=== PATIENT | male | born 1970 | race Caucasian/White ===

== ENCOUNTER 2017-07-27 22:24 | Emergency (ER) | payer SELFPAY ==
[~2017-07-27] VITALS: Ht 188 cm; Wt 87.0 kg
[2017-07-27 22:26] VITALS: Ht 188 cm; Wt 87.0 kg
--- NOTE | 2017-07-27 23:13 | ERD ---
ER Documentation Chief Complaint Chief Complaint chest pain x 2 days HPI Patient is a 47-year-old male who presents with gradual onset, constant, mild tickling sensation that he feels is inside the left side of his chest for the last 2 days. He states that it is in a focal area around his left nipple, but does not feel like it is on the skin or chest wall. He denies shortness of breath, denies chest pain, denies pleuritic pain. Reports that he has had a similar sensation over the last 2 years that typically lasts 5-10 minutes and occurs approximately 3 times per month. He previously has experienced this as a pressure, but states that for the last 2 days it is been a tickling sensation. He associates it with eating sweets. He denies nausea, diaphoresis , back pain, radiation of pain, lightheadedness. He last saw a doctor 2 years ago and states that he had a normal evaluation. ROS All systems reviewed and are negative except as per history of present illness. Medications Home Meds No Active Prescriptions or Reported Meds Allergies Allergies: Coded Allergies: No Known Allergy (Unverified , 07/27/17) PMhx/Soc Past medical history: None Past surgical history: None Social history: Denies tobacco, alcohol or illicit drugs Medical and Surgical Hx: pt denies Medical Hx, pt denies Surgical Hx Hx Alcohol Use: No Hx Substance Use: No Hx Tobacco Use: No Smoking Status: Never smoker FmHx Family History: No coronary disease, No diabetes Physical Exam Vitals Vital Signs Date Time Temp Pulse Resp B/P Pulse Ox O2 Delivery O2 Flow Rate FiO2 07/28/17 00:46 61 20 123/84 99 Room Air 07/27/17 22:26 98.0 71 20 139/66 98 Physical Exam Const: Alert, no acute distress Head: Atraumatic Eyes: Normal Conjunctiva, No pallor, no icterus ENT: Normal External Ears, Nose and Mouth. Mucous membranes moist Neck: Full range of motion. No JVD Resp: Clear to auscultation bilaterally, No wheezes, no rales Cardio: Regular rate and rhythm, no murmurs, No chest wall tenderness, no rash Abd: Soft, non tender, non distended. Skin: No petechiae or rashes Back: No midline or flank tenderness Ext: No cyanosis, or edema, 2+ radial pulses bilateral Neur: Awake and alert, Cranial nerves II through XII intact bilaterally, moves and feels 4 extremities appropriately. Psych: Normal Mood and Affect Result Diagram: 07/27/17231907/27/172319 Results 24 hrs Laboratory Tests Test 07/27/17 23:20 White Blood Count 7.110^3/ul Red Blood Count 4.9710^6/ul Hemoglobin 14.4g/dl Hematocrit 41.8% Mean Corpuscular Volume 84.1fl Mean Corpuscular Hemoglobin 29.0pg Mean Corpuscular Hemoglobin Concent 34.4g/dl Red Cell Distribution Width 13.2% Platelet Count 84939^3/UL Mean Platelet Volume 9.9fl Neutrophils % 53.9% Lymphocytes % 35.4% Monocytes % 6.8% Eosinophils % 2.8% Basophils % 0.8% Nucleated Red Blood Cells % 0.0/100WBC Neutrophils # 3.810^3/ul Lymphocytes # 2.510^3/ul Monocytes # 0.510^3/ul Eosinophils # 0.210^3/ul Basophils # 0.110^3/ul Nucleated Red Blood Cells # 0.010^3/ul Sodium Level 143mmol/L Potassium Level 3.7mmol/L Chloride Level 103mmol/L Carbon Dioxide Level 29mmol/L Anion Gap 15 Blood Urea Nitrogen 15mg/dl Creatinine 0.98mg/dl Glucose Level 77mg/dl Calcium Level 9.3mg/dl Troponin I < 0.012ng/ml Procedures/[facility] EKG read by me: Time 2232, rate 70 Rhythm: Normal sinus Prospect: Normal Intervals: Normal ST-T waves: no ischemic changes Ectopy: No Q-waves: No Impression: No evidence of ischemia or arrhythmia MDM: Patient is a 47-year-old male who reports a tickling sensation inside the left side of his chest for 2 years intermittently. The patient states that it has now been constant for several days. He denies chest pain or shortness of breath. His EKG is nonischemic. His chest x-ray is unremarkable. Given constant symptoms for several days, a single troponin was performed and is negative. The description of his symptoms is rather odd and is unusual for coronary ischemia. He is PERC negative. He has no features concerning for aortic dissection. He does report that his symptoms are associated with eating sweets. I cannot exclude a GI etiology. I cannot exclude anxiety. There does not appear to be a serious or life-threatening cause for his symptoms. He was advised on return precautions and PMD follow-up. Departure Diagnosis: Primary Impression: Chest discomfort Condition: JEFFERSON Burt MD Jul 27, 2017 23:13
[2017-07-27 23:35] LABS: BASOPHIL # 0.1 10^3/ul (0.0-0.1); BASOPHILS % 0.8 % (0.0-2.0); EOSINOPHILS # 0.2 10^3/ul (0.0-0.5); EOSINOPHILS % 2.8 % (0.0-7.0); HEMATOCRIT 41.8 % (42.0-52.0); HEMOGLOBIN 14.4 g/dl (14.0-18.0); LYMPHOCYTES # 2.5 10^3/ul (0.8-2.9); LYMPHOCYTES % 35.4 % (15.0-51.0); MEAN CORPUSCULAR HGB CONC 34.4 g/dl (32.0-37.0); MEAN CORPUSCULAR VOLUME 84.1 fl (82.0-101.0); MEAN PLATELET VOLUME 9.9 fl (7.4-10.4); MONOCYTE # 0.5 10^3/ul (0.3-0.9); MONOCYTES % 6.8 % (0.0-11.0); NEUTROPHIL # 3.8 10^3/ul (1.6-7.5); NEUTROPHILS % 53.9 % (39.0-77.0); PLATELET COUNT 204 10^3/UL (140-415); RED BLOOD COUNT 4.97 10^6/ul (4.70-6.10); RED CELL DISTRIBUTION WIDTH 13.2 % (11.5-14.5); WHITE BLOOD COUNT 7.1 10^3/ul (4.8-10.8)
--- NOTE | 2017-07-27 23:35 | RADRPT ---
PROCEDURE: XR Chest. CLINICAL INDICATION: Chest pain. TECHNIQUE: Portable AP semi erect views of the chest were obtained, 2 images sent to the PACS for review. COMPARISON: None. FINDINGS: The cardiomediastinal silhouette is within normal limits. The lungs are clear. There is no evidenc e for pleural effusion, pneumothorax or pulmonary vascular congestion. The osseous structures are i ntact with no evidence for acute abnormality. RPTAT:HJJR IMPRESSION: No evidence for acute intrathoracic pathology. Physician Lia Date Time Electronically viewed and signed by Physician Lia on 07/27/2017 23:34 /
[2017-07-28 00:17] LABS: ANION GAP 15 (8-16); BLOOD UREA NITROGEN 15 mg/dl (7-20); CALCIUM 9.3 mg/dl (8.4-10.2); CARBON DIOXIDE 29 mmol/L (21-31); CHLORIDE 103 mmol/L (97-110); CREATININE 0.98 mg/dl (0.61-1.24); GLUCOSE 77 mg/dl (70-220); POTASSIUM 3.7 mmol/L (3.5-5.1); SODIUM 143 mmol/L (135-144)
[2017-07-28 00:42] LABS: TROPONIN-I < 0.012 ng/ml (0.00-0.12)
[2017-07-28 00:46] VITALS: BP 123/84; PULSE 61; RESP 20
== END 2017-07-28 01:11 | disposition home or self-care (01) ==
LOC: E/R 22:24
DX: R07.89 Other chest pain (principal)
CPT/HCPCS: 36415; 71010; 80048; 84484; 85025